=== PATIENT | male | born 1960 | race Caucasian/White ===

== ENCOUNTER 2023-07-31 09:18 | Observation (INO) | payer OTHER, SELFPAY ==
--- NOTE | ~2023-07-31 | MR_ITS ---
EXAMINATION: MR BRAIN WITHOUT CONTRAST CLINICAL INFORMATION: transient left-sided vision loss COMPARISON: CTA 07/31/2023 TECHNIQUE: MRI of the brain was obtained using routine sequences without contrast. FINDINGS: No acute infarct. No acute intracranial hemorrhage or extra-axial fluid collection. The ventricles and sulci are normal in size and configuration without significant volume loss or hydrocephalus. Minimal nonspecific periventricular T2 hyperintensity of no clinical significance. No mass lesion, mass effect, or herniation pattern. Normal intracranial arterial and dural venous sinus flow voids. Normal appearance of the midline structures. The orbits are grossly unremarkable. Retention cyst in the left maxillary sinus and mild patchy paranasal sinus mucosal thickening. Mild degenerative changes of the temporomandibular joints with trace joint effusions. MR/MR head/brain wo con IMPRESSION: Unremarkable brain MRI.
--- NOTE | ~2023-07-31 | CT_ITS ---
EXAMINATION: CT ANGIOGRAM HEAD CT ANGIOGRAM NECK CLINICAL INFORMATION: Transient vision loss of the left eye. COMPARISON: CT head from 09/10/2007. TECHNIQUE: Initial noncontrast power supply engineer imaging of the head and neck was performed. Noncontrast head CT was also performed. Test bolus sequences followed by intravenous administration 78 mL of Omnipaque 350. Helical imaging was performed in the axial plane from the aortic arch to the skull vertex. Delayed postcontrast imaging of the head was also performed. The data was processed at the ct technologist's workstation for generation of MIP sequences. Angled MIPs and volume rendered reformatted images were also generated at an offline 3D workstation. Stenoses are assessed in accordance with NASCET criteria unless otherwise indicated. This CT examination was performed using dose optimization techniques as appropriate, variously including the following: *Automated exposure control. *Adjustment of mA and/or kV according to patient size (this includes techniques or standardized protocols for targeted exams where dose is matched to indication/reason for exam; i.e. extremities or head). *Use of iterative reconstruction technique. DLP: 2344 mGy-cm FINDINGS: CT Head: There is no evidence of acute intracranial hemorrhage or edematous territorial infarction. Bustillo-white matter differentiation is preserved. A few foci of hypoattenuation in the periventricular and deep white matter are consistent with mild microangiopathy. The ventricles are normal in morphology and size. No evidence for obstructive hydrocephalus. No abnormal mass effect or midline shift. No extra-axial fluid collections. No pathologic intra-axial enhancement or regional oligemia. No acute soft tissue or osseous abnormalities. Mild mucosal thickening of the paranasal sinuses. The mastoid air cells and middle ear cavities are clear. CT Neck: The thyroid gland and remaining cervical soft tissues are within normal limits. Mild degenerative retrolisthesis of C6 on C7. Moderate degenerative arthropathy of the atlantodental articulation. Moderate degenerative disc disease from C3-C5 and at C6-C7. Facet and uncovertebral joint arthropathy leads to osseous encroachment on the neural foramina from at C3-C4 and C6-C7. CT Upper Chest: The visualized lung apices and upper mediastinum are within normal limits. Neck CTA: Aortic Arch: Normal contour and caliber with mild calcific atherosclerotic disease. Classic 3 vessel branching pattern of the aortic arch. Great Vessel Origins: No significant stenosis of the branch origins. Right Common Carotid Artery: No focal stenosis or occlusion. Cervical Right Internal Carotid Artery: Normal opacification without focal stenosis or occlusion. Left Common Carotid Artery: No focal stenosis or occlusion. Cervical Left Internal Carotid Artery: Normal opacification without focal stenosis or occlusion. Cervical Right Vertebral Artery: Dominant. No focal stenosis or occlusion. Cervical Left Vertebral Artery: No focal stenosis or occlusion. Brain CTA: Intracranial Internal Carotid Arteries: No focal stenosis or occlusion. Normal opacification of the proximal ophthalmic arteries bilaterally. Right Anterior Cerebral Artery: Normal A1 segment. Normal opacification of the distal MICHELLE segments. Left Anterior Cerebral Artery: Normal A1 segment. Normal opacification of the distal MICHELLE segments. Anterior Communicating Artery: Normal. Right Middle Cerebral Artery: Normal M1 segment of the MCA without focal stenosis or occlusion. Normal arborization of the distal segments. Left Middle Cerebral Artery: Normal M1 segment of the MCA without focal stenosis or occlusion. Normal arborization of the distal segments. Right Vertebral Artery: Normal V4 segment. Normal opacification of the proximal segments of the posterior inferior cerebellar artery. Left Vertebral Artery: The V4 segment largely terminates as the posterior inferior cerebellar artery. Basilar Artery: Normal without focal stenosis or occlusion. Normal appearance of the proximal superior cerebellar arteries. Right Posterior Cerebral Artery: Normal P1 segment. Normal opacification of the distal RPG PROGRAMMER ANALYST segments. Left Posterior Cerebral Artery: Normal P1 segment. Normal opacification of the distal RPG PROGRAMMER ANALYST segments. Normal opacification of the superior sagittal, straight, transverse, and sigmoid sinuses. CT/CT angio head neck IMPRESSION: 1. No evidence of acute intracranial hemorrhage or edematous territorial infarction. Mild underlying microangiopathy. 2. CTA of the head and neck without proximal occlusion or flow-limiting stenosis.
[2023-07-31 09:22] VITALS: BP 142/72; PULSE 88; RESP 16; TEMP 36.6; O2SAT 100; BMI 19.5
--- NOTE | 2023-07-31 09:42 | ECG_ITS ---
Test Reason : STROKE LIKE SYMPTOMS Blood Pressure : / mmHG Vent. Rate : 069 BPM Atrial Rate : 069 BPM P-R Int : 156 ms QRS Dur : 082 ms QT Int : 354 ms P-R-T Axes : 065 059 067 degrees QTc Int : 379 ms Normal sinus rhythm Normal ECG When compared with ECG of 10-SEP-2007 07:04, No significant change was found Referred By: Brenna Chavez Electronically Signed By:Timothy Gan
--- NOTE | 2023-07-31 10:11 | ED.GENADULT ---
HPI - General Adult General Chief complaint: Eye Problems Stated complaint: temp blindness sent by urgent care Time Seen by Provider: 07/31/23 09:48 Source: patient, RN notes reviewed and old records reviewed Mode of arrival: ambulatory History of Present Illness HPI narrative: 62-year-old male with no significant past medical history presenting to the ED complaining of transient left eye blindness lasting a few seconds noted Monday. Reports woke up feeling thigh been developed sudden blindness which self-resolved without other associated symptoms. Does admit to similar symptoms in May affecting both eyes which was brief, never worked-up. Denies headache, neck pain, lightheadedness/dizziness, blurry/double vision, tearing, nausea/vomiting, CP/SOB, numbness, tingling, weakness. Denies taking anticoagulation. Related Data Allergies Allergy/AdvReac Type Severity Reaction Status Date / Time No Known Allergies Allergy Verified 07/31/23 09:26 Review of Systems Review of Systems: Constitutional: No Fever, No Chills, No Fatigue, No Malaise ENT/Mouth: No Ear Pain, No Nasal Congestion, No sore throat, No Rhinorrhea, No Swallowing Difficulty Eyes: No Eye Pain, No Swelling, No Redness, No Foreign Body, No Discharge, + Vision Changes Cardiovascular: No Chest Pain, No SOB Respiratory: No Cough, No Sputum, No Dyspnea Gastrointestinal: No Nausea, No Vomiting, No Diarrhea, No Constipation, No Abdominal pain Genitourinary: No Dysuria, No Urinary Frequency, No Hematuria, No Flank Pain Musculoskeletal: No joint pain, No Myalgias, No Joint Swelling Skin: No Skin Lesions, No rash Neuro: No Weakness, No Numbness, No Paresthesias, No Loss of Consciousness, No Dizziness, No Headache Yes all other systems are reviewed and are negative Constitutional: Constitutional: Reports as per HPI Neurologic: Denies Abnormal speech present [facility] Past Medical History Attestation statement: The following information was validated with the patient. Source: old records reviewed Medical History Erectile dysfunction Social History Social History Smoked in Last 30 Days: No Use of substances other than those prescribed or required for medical reasons: No Advance Directives: No Physical Exam ED Vital Signs: Vital Signs - 24 hr 07/31/23 09:22 07/31/23 12:11 Temperature 97.9 F 98.0 F Pulse Rate 88 74 Respiratory Rate 16 14 Blood Pressure 142/72 H 124/72 Pulse Oximetry 100 100 Oxygen Delivery Method Room Air Room Air BMI result Body Mass Index 19.5 Const General: cooperative, healthy appearing and no acute distress Orientation/consciousness: patient oriented x3 Limitations: no limitations HENMT Head: Yes normal to inspection and Yes atraumatic Ears: hearing grossly normal bilaterally and external ears normal General nose exam: Normal external nose present Face and sinus: Yes normal facial exam Mouth: Normal oral and palatal mucosa present and no drooling Throat: Yes posterior oropharynx normal, Yes tonsils normal, Yes uvula midline, No uvula laterally displaced and No uvular edema Eyes General: appearance normal, both eyes and all related structures Periorbital: periorbital findings normal Eyelids: Yes eyelids normal Conjunctivae: conjunctivae normal Sclerae: sclerae normal Pupils: Equal, round and reactive pupils present EOM: EOMs intact bilaterally and no movement deficit Direct Ophthalmoscopy: normal light reflex Neck Neck: Yes normal visual inspection and Yes no meningeal signs Resp Effort & Inspection: normal respiratory effort and no respiratory distress Auscultation: clear to auscultation bilaterally Cardio Rate: regular rate Heart sounds: S1 normal heart sound present and S2 normal heart sound present GI Inspection: Yes normal to inspection Palpation (GI): Soft to palpation, nontender, no guarding and not rigid General: Yes no CVA tenderness Back/Spine/Pelvis Back: no CVA tenderness Skin Rashes: no rashes Wounds: no wounds Neuro General: patient oriented x3, gait normal, tone normal, moves all extremities, no meningeal signs, no focal motor deficits and CN's II-XI intact bilaterally Cranial nerves: Yes CN's II-XII intact bilaterally, Yes Equal, round and reactive pupils present and Yes Bilaterally intact EOM present Cognition (Neuro): normal cognition Speech: No Abnormal speech present Gait exam (Neuro): Normal gait present Motor exam (neuro): 5/5 motor strength present throughout, Pronator motor function not present and no tremor noted Extrem General: Yes normal to inspection NIH Stroke Scale Internal: Initial- Upon Arrival Level of Consciousness: Alert Level of Consciousness Questions: Answers both questions correctly Level of Consciousness Commands: Performs both tasks correctly Best Gaze: Normal Visual: No visual loss Facial Palsy: Normal Motor Arm (Right): No drift Motor Arm (Left): No drift Motor Leg (Right): No drift Motor Leg (Left): No drift Limb Ataxia: Absent Sensory: Normal Best Language: No aphasia Dysarthia: Normal Extinction and Inattention: No abnormality Score: 0 Course Course Course Narrative: -[id number]--labs reassuring CT angio head neck IMPRESSION: 1. No evidence of acute intracranial hemorrhage or edematous territorial infarction. Mild underlying microangiopathy. 2. CTA of the head and neck without proximal occlusion or flow-limiting stenosis. > plan to admit for further management Medications Administered Discontinued Medications Generic Name Dose Route Start Last Admin Trade Name Freq PRN Reason Stop Dose Admin Iohexol 100 ml 07/31/23 11:22 07/31/23 11:22 Iohexol 350 Mg/Ml 100 Ml Infus..Btl IV 07/31/23 11:23 70 ml ONCE ONE Administration Medical Decision Making Medical Decision Making [facility] Narrative: 62-year-old male with no significant past medical history presenting to the ED complaining of transient left eye blindness lasting a few seconds noted Monday morning. On exam vital signs stable, NAD, nontoxic appearing physical exam as noted above, unremarkable, no focal neuro deficits. Concern for Amaurosis fugax vs TIA/CVA vs complicated migraine vs carotid artery disease vs ocular dz Plan: EKG, labs, CTA head and neck Please refer to course for remaining clinical decision making, interpretation of labs/imaging results, and discussions with consultants and/or family members. Differential Diagnosis Differential Diagnoses: The differential diagnosis associated with the presentation includes As above Admission/Observation Consideration of admission/observation: Escalation of care including admission/observation considered Consult Healthcare Provider Management of the patient was discussed with: Hospitalist Lab Data [facility] Lab Attestation statement: I reviewed the patient's lab results. 07/31/23 10:13 07/31/23 10:13 Labs: Lab Results 07/31/23 Range/Units 10:13 WBC 4.4 L (4.8-10.8) X10*3/uL RBC 4.50 L (4.60-5.80) X10*6/uL Hgb 13.8 L (14.0-18.0) g/dl Hct 40.4 L (42.0-52.0) % MCV 89.8 (80.0-98.0) fL MCH 30.7 (27.0-33.0) pg MCHC 34.2 (31.0-36.0) g/dl RDW 13.3 (11.0-16.0) % Plt Count 239 (160-400) X10*3/uL MPV 9.7 (9.4-12.4) fL Immature Gran % (Auto) 0.2 (0.0-0.4) % Neut % (Auto) 56.1 (45-73) % Lymph % (Auto) 34.0 (20-40) % [place] % (Auto) 7.9 (2-11) % Eos % (Auto) 1.1 (0-4) % Baso % (Auto) 0.7 (0-2) % Lymph # (Auto) 1.5 (1.2-4.9) X10*3/uL [place] # (Auto) 0.4 (0.1-1.2) X10*3/uL Eos # (Auto) 0.1 (0.0-0.4) X10*3/uL Baso # (Auto) 0.0 (0.0-0.2) X10*3/uL Abs Immat Gran (auto) 0.01 (0.00-0.03) X10*3/uL Absolute Neuts (auto) 2.5 (2.0-8.3) x10*3/uL Absolute Nucleated RBC 0.000 (0.0-0.012) X10*3/uL Nucleated RBC % (auto) 0.0 (0.0-0.2) /100WBC PT 11.1 (11.1-13.3) SEC INR 0.9 (0.9-1.1) Sodium 142 (135-145) mmol/L Potassium 4.2 (3.3-5.1) mmol/L Chloride 106 (96-108) mmol/L Carbon Dioxide 32 H (22-29) mmol/L Anion Gap 8 L (12-20) BUN 18 H (9-16) mg/dL Creatinine 0.97 (0.5-1.4) mg/dL Estim Creat Clear Calc 72.9 Estimated GFR > 60 Random Glucose 99 (60-115) mg/dL Calcium 9.4 (8.4-10.2) mg/dL Magnesium 2.1 (1.6-2.6) mg/dL Total Bilirubin 0.5 (0.0-1.0) mg/dL Direct Bilirubin 0.2 (0.0-0.5) mg/dL AST 15 (5-37) U/L ALT 13 (0-40) U/L Alkaline Phosphatase 53 (39-117) U/L Troponin I High Sens < 2.7 (<3.5-35.0) ng/L Total Protein 6.9 (6.5-8.0) g/dL Albumin 4.2 (3.5-5.0) g/dL COVID-19 ([facility]) Negative (Negative) COVID-19 Clin Com See Note Independent Interpretation I performed an independent interpretation of an: EKG (My interpretation EKG normal sinus rhythm rate of 69. MS interval 156. QTC 379. No STEMI) and CT Scan Radiology Impression Discussion of test interpretation with radiology: I have reviewed the radiologist's reading. External Record Review External record reviewed: Inpatient record, Office record, Outpatient record, Prior outpatient labs, Prior outpatient radiology, Primary care record and Outside ED record Tests considered The following testing was considered but not selected: As above Critical Care Time Critical Care Time Critical Care Time: Yes Total Critical Care Time: 35 Attestation: I have personally provided critical care time exclusive of time spent on separately billable procedures. Time includes review of lab data, radiology results, discussion with consultants, and monitoring for potential decompensation. Intervention performed as documented. Discharge Plan Discharge Clinical Impression: Transient vision disturbance of left eye Patient Disposition: Admitted As Inpatient
[2023-07-31 10:19] LABS: MANUAL DIFF FLAG NO
--- NOTE | 2023-07-31 10:19 | PC.NURSE ---
pt a&o x4, pleasant, calm, and cooperative. pt sts had vision changes briefly on monday but has since resolved. 20G IV placed to LAC, labs drawn and sent. pt resting quielty on stretcher, watching tv. awaiting CTA. call tate within pt reach, plan of care ongoing.
[2023-07-31 10:23] LABS: Basophils Percent Auto 0.7 % (0-2); Eosinophils Absolute Auto 0.1 X10*3/uL (0.0-0.4); Eosinophils Percent Auto 1.1 % (0-4); Hematocrit 40.4 % (42.0-52.0); Hemoglobin 13.8 g/dl (14.0-18.0); Imm Gran Abs Auto 0.01 X10*3/uL (0.00-0.03); Imm Gran Pct Auto 0.2 % (0.0-0.4); Lymphocytes Absolute Auto 1.5 X10*3/uL (1.2-4.9); Mean Corpuscular HGB Conc 34.2 g/dl (31.0-36.0); Mean Corpuscular Hemoglobin 30.7 pg (27.0-33.0); Mean Corpuscular Volume 89.8 fL (80.0-98.0); Mean Platelet Volume 9.7 fL (9.4-12.4); Monocytes Absolute Auto 0.4 X10*3/uL (0.1-1.2); Monocytes Percent Auto 7.9 % (2-11); Neutrophils Absolute Auto 2.5 x10*3/uL (2.0-8.3); Neutrophils Percent Auto 56.1 % (45-73); Platelet Count 239 X10*3/uL (160-400); Red Cell Distribution Width 13.3 % (11.0-16.0); White Blood Count 4.4 X10*3/uL (4.8-10.8)
[2023-07-31 10:25] LABS: INTERNATIONAL NORM RATIO 0.9 (0.9-1.1); Prothrombin Time 11.1 SEC (11.1-13.3)
[2023-07-31 10:41] LABS: Alanine Aminotransferase 13 U/L (0-40); Albumin Level 4.2 g/dL (3.5-5.0); Alkaline Phosphatase 53 U/L (39-117); Anion Gap 8 (12-20); Aspartate Amino Transferase 15 U/L (5-37); Bilirubin Direct 0.2 mg/dL (0.0-0.5); Bilirubin Total 0.5 mg/dL (0.0-1.0); Blood Urea Nitrogen 18 mg/dL (9-16); Calcium 9.4 mg/dL (8.4-10.2); Carbon Dioxide 32 mmol/L (22-29); Chloride 106 mmol/L (96-108); Creatinine Clr Calc Pharmacy 72.9; Estimated Glomerular Filt Rate > 60; Glucose Random 99 mg/dL (60-115); Magnesium 2.1 mg/dL (1.6-2.6); Potassium 4.2 mmol/L (3.3-5.1); Sodium 142 mmol/L (135-145); Total Protein 6.9 g/dL (6.5-8.0)
[2023-07-31 10:47] LABS: COVID-19 Test Negative (Negative); IDNOW Serial# 9DB6401D
[2023-07-31 10:51] LABS: Troponin-I High Sensitivity < 2.7 ng/L (<3.5-35.0)
[2023-07-31] MEDS: iohexoL 350 MG/ML 100 ML INFUS..BTL IV (11:22)
[2023-07-31 12:11] VITALS: BP 124/72; PULSE 74; RESP 14; TEMP 36.7; O2SAT 100
--- NOTE | 2023-07-31 13:56 | P.HPHOSP_ITS ---
History of Present Illness Date of Service: 07/31/23 <SERJIO Ash - Last Filed: 07/31/23 14:09> Attending physician on admission: Aster Sawyer <SERJIO Ash - Last Filed: 07/31/23 14:09> Chief Complaint: unilateral vision loss <SERJIO Ash - Last Filed: 07/31/23 14:09> 62 year old male with history of erectile dysfunction on sildenafil presented to the ED earlier today for evaluation of sudden onset unilateral vision loss of the L eye that occurred Monday lasting about 10 seconds. No other deficits reported including dizziness, headache, weakness, paresthesias. Had similar symptoms in the bilateral eyes in may lasting 10-15 seconds. Was seen by his frame opener who reportedly was not concerned per patient. Has had poor PCP follow up but has a new pcp intake scheduled in October. Was seen in urgent care earlier today recommending he come in for evaluation. On arrival, VSS. Hematology studies unremarkable. Renal function and electrolytes normal. Trop undetectable. Negative for COVD-19. CTA head/neck negative for any acute intracranial abnormality. No hemodynamically significant stenosis or LVO. EKG shows NSR, rate 69, no st/twave abnormality. No illicit substance use, mj use, etoh use, or cigarette smoking <SERJIO Ash - Last Filed: 07/31/23 14:09> Review of Systems 2 Review of Systems: General: No fevers, malaise, unintentional weight loss HEENT: No blurred vision, diplopia. No sore throat, nasal congestion, rhinorrhea, sinus pain, ear pain Cardiovascular: No chest pain, palpitations, or leg edema Respiratory: No shortness of breath, wheezing, cough GI: No abdominal pain, nausea, vomiting, diarrhea, constipation, melena, hematochezia : No dysuria, hematuria, increased urinary frequency, decreased urinary output MSK: No myalgia, back pain Neuro: +unilateral vision loss. No headaches, weakness, paresthesias Skin: No rashes or lesions <SERJIO Ash Last Filed: 07/31/23 14:09> [facility] Medical History: Medical History Erectile dysfunction <SERJIO Ash - Last Filed: 07/31/23 14:09> Social History: Social History service: No <SERJIO Ash - Last Filed: 07/31/23 14:09> Meds Allergies/Adverse reactions: Allergies Allergy/AdvReac Type Severity Reaction Status Date / Time No Known Allergies Allergy Verified 07/31/23 09:26 <SERJIO Ash - Last Filed: 07/31/23 14:09> Home medications: Home Medications Medication Instructions Recorded Confirmed Last Taken Type ascorbic acid (vitamin C) 500 mg 500 mg PO DAILY 07/31/23 07/31/23 Unknown History capsule,extended release calcium carbonate 500 mg calcium 500 mg PO DAILY 07/31/23 07/31/23 Unknown History (1,250 mg) tablet magnesium 250 mg tablet 250 mg PO DAILY 07/31/23 07/31/23 Unknown History magnesium oxide 400 mg PO DAILY 07/31/23 07/31/23 Unknown History sildenafil 25 mg tablet 25 mg PO DAILY PRN Sexual Activity 07/31/23 07/31/23 Unknown History <SERJIO Ash - Last Filed: 07/31/23 14:09> Physical Exam 2 Vital Signs and Narrative: Vital Signs: Last Vital Signs Temp 98.0 F 07/31/23 12:11 Pulse 74 07/31/23 12:11 Resp 14 07/31/23 12:11 BP 124/72 07/31/23 12:11 Pulse Ox 100 07/31/23 12:11 O2 Del Method Room Air 07/31/23 12:11 BMI result Body Mass Index 19.5 <SERJIO Ash - Last Filed: 07/31/23 14:09> Results Labs CBC and Chem 7: 08/01/23 06:12 08/01/23 06:12 <SERJIO Ash - Last Filed: 07/31/23 14:09> Labs: Laboratory Results - last 24 hr 07/31/23 10:13 MCV 89.8 MCH 30.7 MCHC 34.2 RDW 13.3 Plt Count 239 MPV 9.7 Immature Gran % (Auto) 0.2 Neut % (Auto) 56.1 Lymph % (Auto) 34.0 [place] % (Auto) 7.9 Eos % (Auto) 1.1 Baso % (Auto) 0.7 Lymph # (Auto) 1.5 [place] # (Auto) 0.4 Eos # (Auto) 0.1 Baso # (Auto) 0.0 Abs Immat Gran (auto) 0.01 Absolute Neuts (auto) 2.5 Absolute Nucleated RBC 0.000 Nucleated RBC % (auto) 0.0 PT 11.1 INR 0.9 Anion Gap 8 L Estim Creat Clear Calc 72.9 Estimated GFR > 60 Random Glucose 99 Calcium 9.4 Magnesium 2.1 Total Bilirubin 0.5 Direct Bilirubin 0.2 AST 15 ALT 13 Alkaline Phosphatase 53 Total Protein 6.9 Albumin 4.2 COVID-19 ([facility]) Negative COVID-19 Clin Com See Note <SERJIO Ash - Last Filed: 07/31/23 14:09> Imaging Radiologist's Impressions: Impressions Head/Neck CTA 07/31/23 11:23 IMPRESSION: 1. No evidence of acute intracranial hemorrhage or edematous territorial infarction. Mild underlying microangiopathy. 2. CTA of the head and neck without proximal occlusion or flow-limiting stenosis. <SERJIO Ash - Last Filed: 07/31/23 14:09> Assessment and Plan (1) Transient vision disturbance of left eye: Status: Acute <SERJIO Ash - Last Filed: 07/31/23 14:09> 62 year old male with history of erectile dysfunction on sildenafil to be observed for transient vision loss of L eye #Transient vision loss of L eye -possible side effect of sildenafil, however cannot exclude TIA/amaurosis fugax -CTA head/neck negative for any acute intracranial abnormality of hemodynamically significant stenosis -MRI brain ordered -asa 81mg now and daily -lipid profile pending, atorvastatin 40mg daily -echo -neuro consult -swallow eval, neuro checks, admit to med/tele DVT prophylaxis- lovenox full code <SERJIO Ash - Last Filed: 07/31/23 14:09> 62 year old male with history of erectile dysfunction on sildenafil to be observed for transient vision loss of L eye #Transient vision loss of L eye -possible side effect of sildenafil, however cannot exclude TIA/amaurosis fugax -CTA head/neck negative for any acute intracranial abnormality of hemodynamically significant stenosis -MRI brain ordered -asa 81mg now and daily -lipid profile pending, atorvastatin 40mg daily -echo -neuro consult -swallow eval, neuro checks, admit to med/tele DVT prophylaxis- lovenox full code Addendum to history and physical by the advanced practice provider, Elías Mcqueen I interviewed and examined the patient. I discussed their presentation and management with the JOSE. I reviewed the history and physical and agree with the documentation, with the following additions and corrections: 62yo M presenting with 10 sec episode of transient L eye vision loss 2 d prior to presentation. Similar episode in May 2023. Pt saw his eye doctor, who was not concerned. Sent in by Urgent Care. CTA negative for any acute stroke or significant stenosis. Plan admit to telemetry on observation, check MRI/TTE, Neuro consult. Aspirin + statin. <Aster Sawyer MD - Last Filed: 08/01/23 12:39> Quality Stroke Does the patient have a stroke diagnosis?: Yes <SERJIO Ash - Last Filed: 07/31/23 14:09> Reason for No Anti-thrombotic by Day Two: Not indicated <SERJIO Ash - Last Filed: 07/31/23 14:09> VTE Prior VTE?: No <SERJIO Ash - Last Filed: 07/31/23 14:09> VTE Risk Level:: Medical - moderate - high <SERJIO Ash - Last Filed: 07/31/23 14:09> VTE Device Contraindication: Treatment Not Indicated <SERJIO Ash - Last Filed: 07/31/23 14:09> VTE Drug Contraindication: N/A - Med Ordered <SERJIO Ash - Last Filed: 07/31/23 14:09>
[2023-07-31 14:39] LABS: Cholesterol 221 mg/dL (<200); HDL Cholesterol 72 mg/dL (>40); LDL Cholesterol Calculated 132 mg/dL (<100); Triglycerides 89 mg/dL (<150)
--- NOTE | 2023-07-31 14:47 | PHA.MEDREC ---
Pharmacy Consult ? Medication Reconciliation Pharmacy has completed the medication reconciliation. Patient reported medications. Leticia Brody, VictorinoD
--- NOTE | 2023-07-31 16:06 | PM.NEUROCN ---
History of Present Illness Data of Consult Service Date: 07/31/23 Primary Care Provider: Rae Bennett MD [facility] Reason for consult: Visual loss 62 years old man who came to hospital stating that couple of days ago he woke up and could not see from his left eye. He was not drinking and did not take any drug of abuse. When he woke up he noticed something wrong with his left eye but he did not cover each eye individually. He said that it lasted for about 10 seconds and then everything was normal. There was no associated pain or headache. He also reported that this kind of symptom happened few months ago when both of his eyes were affected lasting for few seconds. He had seen his eye doctor and no abnormality of I was noted. He was taking sildenafil for erectile dysfunction. Review of Systems Review of Systems: No headaches PMFSH Past Medical History Medical History Erectile dysfunction Social History Social History Smoked in Last 30 Days: No Use of substances other than those prescribed or required for medical reasons: No Advance Directives: No Meds Allergies Allergy/AdvReac Type Severity Reaction Status Date / Time No Known Allergies Allergy Verified 07/31/23 09:26 Active Medications: Current Medications Acetaminophen (Acetaminophen 325 Mg Tablet) 650 mg PO Q6H PRN PRN Reason: Pain, Mild (Pain Scale 1-3) Aspirin (Aspirin Enteric Coated 81 Mg Tablet.) 81 mg PO DAILY [facility] Atorvastatin Calcium (Atorvastatin Calcium 40 Mg Tablet) 40 mg PO DAILY [facility] Heparin Sodium (Porcine) (Heparin Sodium,Porcine 5,000 Unit/Ml Vial) 5,000 unit SUBCUT Q12H [facility] Ondansetron HCl (Ondansetron Hcl 4 Mg/2 Ml Vial) 4 mg IVPUSH Q8H PRN PRN Reason: Nausea and Vomiting Senna (Sennosides 8.6 Mg Tablet) 17.2 mg PO BEDTIME PRN PRN Reason: Constipation Sodium Chloride (0.9 % Sodium Chloride Flush 3 Ml Syringe) 3 ml IVFLUSH QSHIFT [facility] Home Medications Medication Instructions Recorded Confirmed Last Taken Type ascorbic acid (vitamin C) 500 mg 500 mg PO DAILY 07/31/23 07/31/23 Unknown History capsule,extended release calcium carbonate 500 mg calcium 500 mg PO DAILY 07/31/23 07/31/23 Unknown History (1,250 mg) tablet magnesium 250 mg tablet 250 mg PO DAILY 07/31/23 07/31/23 Unknown History magnesium oxide 400 mg PO DAILY 07/31/23 07/31/23 Unknown History sildenafil 25 mg tablet 25 mg PO DAILY PRN Sexual Activity 07/31/23 07/31/23 Unknown History Physical Exam Vital Signs: Vital Signs: Last Vital Signs Temp 98.0 F 07/31/23 12:11 Pulse 74 07/31/23 12:11 Resp 14 07/31/23 12:11 BP 124/72 07/31/23 12:11 Pulse Ox 100 07/31/23 12:11 O2 Del Method Room Air 07/31/23 12:11 BMI result Body Mass Index 19.5 Neuro: Other: Alert and awake with normal spontaneity of speech fluency comprehension and anxious affect. Pupils are 4-5 mm round reactive. Extraocular muscles are intact. Visual landry are full. Face is symmetrical. There is no pronator drift. [id number] testing is normal. Reflexes are normal. Results Labs 07/31/23 10:13 07/31/23 10:13 Labs: Short CBC 07/31/23 Range/Units 10:13 WBC 4.4 L (4.8-10.8) X10*3/uL Hgb 13.8 L (14.0-18.0) g/dl Hct 40.4 L (42.0-52.0) % Plt Count 239 (160-400) X10*3/uL BMP 07/31/23 10:13 Sodium 142 Potassium 4.2 Chloride 106 Carbon Dioxide 32 H BUN 18 H Creatinine 0.97 Calcium 9.4 Liver Function 07/31/23 Range/Units 10:13 Total Bilirubin 0.5 (0.0-1.0) mg/dL Direct Bilirubin 0.2 (0.0-0.5) mg/dL AST 15 (5-37) U/L ALT 13 (0-40) U/L Alkaline Phosphatase 53 (39-117) U/L Albumin 4.2 (3.5-5.0) g/dL head CT and CTA of brain and neck were reviewed. No vascular lesion was noted. Mild cortical bilateral frontoparietal atrophy was noted. Assessment and Plan (1) Transient vision disturbance of left eye: Status: Acute 62 years old man who reported losing vision in left eye but he did not cover each eye individually without which 1 could not be sure about it. It lasted for few seconds and it might have been either eye problem or hemianopsia. He also reported that a similar episode happened few months ago lasting for few seconds and involving both eyes. His examination, other than anxiety, did not reveal any significant abnormality. According to him as I examination by his eye doctor was also okay. His CTA of brain and neck did not reveal any vascular lesion. Only finding on CT was mild cortical atrophy, which put him at risk for anxiety type of disorder. My recommendation is reassurance and education and treatment of hyperlipidemia and baby aspirin daily. Procedures Date of Service Date of Service: 07/31/23
[2023-07-31] MEDS: Aspirin Enteric Coated 81 MG TABLET.DR PO (16:13)
[2023-07-31] MEDS: Heparin Sodium,Porcine 5,000 UNIT/ML VIAL 5000 UNIT SUBCUT (16:13)
[2023-07-31 16:19] VITALS: BP 120/65; PULSE 63; RESP 16; TEMP 36.7; O2SAT 98
[2023-07-31 16:42] LABS: Estimated Average Glucose 103 mg/dL; Hemoglobin A1c % 5.2 % (<6.0)
[2023-07-31 19:20] VITALS: BP 118/61; PULSE 82; RESP 16; TEMP 36.7; O2SAT 98
--- NOTE | 2023-07-31 23:19 | PC.NURSE ---
late entry: pt resting quietly on stretcher in no apparent distress. rr even/unlabored. pt went to MRI, both MRI and CTA negative. pt being admitted for transient vision loss of left eye. rr even/unlabored. on cardiac diet. neuros grossly intact. pt ambulatory on own. call tate within reach. plan of care ongoing. inpatient report complete. awaiting pt transport.
[2023-08-01] VITALS: BP 109/56; PULSE 73; RESP 20; TEMP 36.1; O2SAT 98
[2023-08-01] MEDS: 0.9 % Sodium Chloride Flush 3 ML SYRINGE IVFLUSH ×2 (02:00→08:21)
[2023-08-01 03:54] VITALS: BP 103/60; PULSE 76; RESP 20; TEMP 36.8; O2SAT 97
[2023-08-01 06:54] LABS: MANUAL DIFF FLAG NO
--- NOTE | 2023-08-01 07:00 | CA_ITS ---
Transthoracic Echocardiogram Patient (Last, First, Middle): Hasmukh Sandoval, Gender: Male Date of : 1960 Age: 62 Procedure Date: 08/01/2023 Procedure Type: Transthoracic Echocardiogram [place] [facility] [place] Height: 182. 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 The visually estimated ejection fraction is between 55-60%. Diastolic function is normal for age - Normal right ventricular cavity size and systolic function. - The left atrium is normal in size. There is no evidence of interatrial shunt by agitated saline. - There is mild dilatation of the ascending aorta measuring 3.70 cm. Findings Left Ventricle Normal left ventricular size, thickness, systolic function, and wall motion. The visually estimated ejection fraction is between 55-60%. Diastolic function is normal for age. Right Ventricle Normal right ventricular cavity size and systolic function. Atria The left atrium is normal in size. There is no evidence of interatrial shunt by agitated saline. Aortic Valve The aortic valve was not well visualized. There is no aortic valve stenosis. There is no aortic valve regurgitation. Mitral Valve Normal mitral valve structure and function. There is no mitral valve regurgitation. There is no mitral valve stenosis. Pulmonic Valve The pulmonic valve is likely normal. Tricuspid Valve Normal tricuspid valve structure. There is no tricuspid valve regurgitation. Normal right atrial pressure. There is no evidence of pulmonary hypertension. Great Vessels There is mild dilatation of the ascending aorta measuring 3.70 cm. The visualized portions of the pulmonary artery and branches are normal. Venous The inferior vena cava is normal in size and collapses greater than 50% with inspiration. Pericardium/Pleural There is no evidence of pericardial effusion. Prior Study Comparison No prior study available for comparison. Measurements 2D Linear Measurements IVSd: 0.71 0.6-0.9/0.6-1.0 cm LVIDd: 4.40 3.9-5.3/4.2-5.9 cm LVIDd Index: 2.39 2.4-3.2/2.2-3.1 cm/m2 LVIDs: 3.00 2.0-3.6 cm LVPWd: 0.73 0.7-1.1 cm Ao Root: 3.30 2.1-3.5 cm LA Diam: 3.00 2.7-3.8/3.0-4.0 cm LAIDs Index: 1.63 1.5-2.3 cm/m2 LV Mass: 118.77 67-162/88-224 g LV Mass Index: 64.55 43-95/49-115 g/m2 LVOT Diam: 2.10 3.0+(-)1.3 cm 2D Systolic Function EF 4C: 59.10 >55% EF 2C: 65.80 >55% EF BiP: 62.90 >55% Mitral Valve MV Pk E: 0.48 MV PK A: 0.65 MV Decel Time: 160.00 E/A: 0.70 E'Lateral: 10.30 E'Medial: 8.70 E/E' Med: 5.60 E/E' Lat: 4.70 PHT: 47.00 MVA PHT: 4.68 Decel Boyd: 3.02 Aortic Valve AoV Pk Gabe: 1.10 AoV Mn Gabe: 0.76 AoV VTI: 0.25 AoV Pk Grad: 5.00 Aov Mn Grad: 3.00 KIRSTEN Cont.VTI: 2.63 LVOT LVOT Pk Gabe: 0.82 LVOT Mn Gabe: 0.58 LVOT VTI: 0.19 LVOT Pk Grad: 3.00 LVOT Mn Grad: 2.00 LVOT Diam: 2.10 LVOT Area: 3.46 Diastolic Function MV Pk E: 0.48 MV Pk A: 0.65 E/A: 0.70 E'Medial: 8.70 E/E' Med: 5.60 E' Laterial: 10.30 E/E' Lat: 4.70 Right Ventricle TAPSE (mm): 27.00 TVS' Gabe: 12.00 Tricuspid Valve TR Pk Gabe: 1.78 TR Pk Grad: 13.00 RA Press: 3.00 RVSP: 16.00 Great Vessels Aorta Ao Root-2D: 3.30 2.0-3.7 cm Ao Asc: 3.70 2.1-3.4 cm Pulmonary Valve PV Pk Gabe: 0.88 Peak PV Grad: 3.00 Updated in Other Vendor System with Status of Final Timothy Gan MD electronically signed on 08/01/2023 11:31:03 AM with status of Final
[2023-08-01 07:07] LABS: Basophils Percent Auto 0.8 % (0-2); Eosinophils Absolute Auto 0.1 X10*3/uL (0.0-0.4); Hematocrit 39.5 % (42.0-52.0); Hemoglobin 13.3 g/dl (14.0-18.0); Lymphocytes Absolute Auto 1.8 X10*3/uL (1.2-4.9); Lymphocytes Percent Auto 36.2 % (20-40); Mean Corpuscular HGB Conc 33.7 g/dl (31.0-36.0); Monocytes Absolute Auto 0.5 X10*3/uL (0.1-1.2); Monocytes Percent Auto 9.7 % (2-11); Neutrophils Absolute Auto 2.6 x10*3/uL (2.0-8.3); Neutrophils Percent Auto 51.3 % (45-73); Platelet Count 222 X10*3/uL (160-400); Red Blood Count 4.44 X10*6/uL (4.60-5.80); Red Cell Distribution Width 13.3 % (11.0-16.0)
[2023-08-01 07:19] LABS: Anion Gap 10 (12-20); Blood Urea Nitrogen 16 mg/dL (9-16); Calcium 9.1 mg/dL (8.4-10.2); Carbon Dioxide 29 mmol/L (22-29); Chloride 107 mmol/L (96-108); Creatinine Clr Calc Pharmacy 78.6; Estimated Glomerular Filt Rate > 60; Glucose Random 91 mg/dL (60-115); Potassium 4.1 mmol/L (3.3-5.1); Sodium 142 mmol/L (135-145)
[2023-08-01 07:52] VITALS: BP 110/60; PULSE 73; RESP 18; TEMP 36.6; O2SAT 98
[2023-08-01] MEDS: Atorvastatin Calcium 40 MG TABLET PO (08:21)
[2023-08-01] MEDS: Aspirin Enteric Coated 81 MG TABLET.DR PO (08:21)
[2023-08-01 08:56] VITALS: BP 110/60; PULSE 73; O2SAT 98
--- NOTE | 2023-08-01 10:19 | MHC.CM.PN ---
KRISTOFER 08/01/23, EMR REVIEWED, PT ADMITTED W/VISION LOSS AND WORK-UP FOR TIA, PT CLEARED BY OT/PT AND PLAN FOR ECCHO AND DC HOME SELF CARE. PT REPORTS HE IS FULLY INDEP, DRIVES AND CAR IN [facility], PT DENIES USE OF DME/SERVICES AND GOAL FOR IS HOME TODAY. P PT VERIFIES PT WAS ASSIGNED PCP ON FILE AND HAS A NEW PT APPT IN OCTOBER AND WILL BE SEEING DR YECENIA BASSETT, PT VERIFIES COVID VACCX2 AND NO BOOSTERS AND PT HAS BEEN EDUCATED ON AND DECLINES TO COMPLETE A HCP THIS ADMISSION. ANTIC DC LATER TODAY HOME SELF-CARE, PT WILL SELF TRANSPORT
[2023-08-01 11:35] VITALS: BP 112/59; PULSE 73; RESP 18; TEMP 36.9; O2SAT 98
--- NOTE | 2023-08-01 12:39 | P.DS_ITS ---
DS: Providers Provider Date of Service: 08/01/23 Date of admission: 07/31/23 13:51 Date of discharge: 08/01/23 Primary care physician: Rae Bennett MD Consults: 07/31/23 13:53 Consult to Neurology Routine Consulting Provider: [facility] Reason for consultation: sudeden unilateral vision loss L eye DS: Diagnosis Discharge Diagnosis (1) Transient vision disturbance of left eye: Status: Acute (2) Dyslipidemia: Status: Acute DS: Summary Hospital Course Hospital Course: From the history and physical by the admitting hospitalist, SERJIO Mcqueen, 07/31/23: 62 year old male with history of erectile dysfunction on sildenafil presented to the ED earlier today for evaluation of sudden onset unilateral vision loss of the L eye that occurred Monday morning lasting about 10 seconds. No other deficits reported including dizziness, headache, weakness, paresthesias. Had similar symptoms in the bilateral eyes in may lasting 10-15 seconds. Was seen by his veneer jointer who reportedly was not concerned per patient. Has had poor PCP follow up but has a new pcp intake scheduled in October. Was seen in urgent care earlier today recommending he come in for evaluation. On arrival, VSS. Hematology studies unremarkable. Renal function and electrolytes normal. Trop undetectable. Negative for COVD-19. CTA head/neck negative for any acute intracranial abnormality. No hemodynamically significant stenosis or LVO. EKG shows NSR, rate 69, no st/twave abnormality. No illicit substance use, mj use, etoh use, or cigarette smoking He was admitted to the telemetry unit. No recurrence of visual symptoms. LDL high at 132. He was started on baby aspirin and atorvastatin. MRI of the brain unremarkable. No events on telemetry. Echocardiogram normal. Per Neurology campaign consultant Dr Kristen Carrillo: 62 years old man who reported losing vision in left eye but he did not cover each eye individually without which 1 could not be sure about it. It lasted for few seconds and it might have been either eye problem or hemianopsia. He also reported that a similar episode happened few months ago lasting for few seconds and involving both eyes. His examination, other than anxiety, did not reveal any significant abnormality. According to him as I examination by his eye doctor was also okay. His CTA of brain and neck did not reveal any vascular lesion. Only finding on CT was mild cortical atrophy, which put him at risk for anxiety type of disorder. My recommendation is reassurance and education and t reatment of hyperlipidemia and baby aspirin daily He was discharged home on baby aspirin and atorvastatin. Time Attestation Discharge coordination time: Greater than 30 minutes Quality: Safe Use of Opioids Does Pt have an Active Cancer Diagnosis on the Problem List?: No Quality: Stroke Does the patient have a stroke diagnosis?: No Physical Exam Vital Signs: Vital Signs: Last Vital Signs Temp 98.4 F 08/01/23 11:35 Pulse 73 08/01/23 11:35 Resp 18 08/01/23 11:35 BP 112/59 L 08/01/23 11:35 Pulse Ox 98 08/01/23 11:35 O2 Del Method Room Air 08/01/23 11:35 BMI result Body Mass Index 19.5 Gen: in no acute distress HEENT: sclera anicteric, moist mucus membranes Neck: supple Lungs: clear to auscultation bilaterally Heart: regular rate and rhythm, no murmurs Abd: soft, non-tender, non-distended Ext: no edema Skin: warm/well-perfused Neuro: alert and oriented x3, no focal findings Psych: appropriate affect DS: Data Data Completed and Pending Completed studies during hospitalization [Text1]: Laboratory Results WBC 5.0 X10*3/uL (4.8-10.8) 08/01/23 06:12 RBC 4.44 X10*6/uL (4.60-5.80) L 08/01/23 06:12 Hgb 13.3 g/dl (14.0-18.0) L 08/01/23 06:12 Hct 39.5 % (42.0-52.0) L 08/01/23 06:12 MCV 89.0 fL (80.0-98.0) 08/01/23 06:12 MCH 30.0 pg (27.0-33.0) 08/01/23 06:12 MCHC 33.7 g/dl (31.0-36.0) 08/01/23 06:12 RDW 13.3 % (11.0-16.0) 08/01/23 06:12 Plt Count 222 X10*3/uL (160-400) 08/01/23 06:12 MPV 10.0 fL (9.4-12.4) 08/01/23 06:12 Immature Gran % (Auto) 0.0 % (0.0-0.4) 08/01/23 06:12 Neut % (Auto) 51.3 % (45-73) 08/01/23 06:12 Lymph % (Auto) 36.2 % (20-40) 08/01/23 06:12 [place] % (Auto) 9.7 % (2-11) 08/01/23 06:12 Eos % (Auto) 2.0 % (0-4) 08/01/23 06:12 Baso % (Auto) 0.8 % (0-2) 08/01/23 06:12 Lymph # (Auto) 1.8 X10*3/uL (1.2-4.9) 08/01/23 06:12 [place] # (Auto) 0.5 X10*3/uL (0.1-1.2) 08/01/23 06:12 Eos # (Auto) 0.1 X10*3/uL (0.0-0.4) 08/01/23 06:12 Baso # (Auto) 0.0 X10*3/uL (0.0-0.2) 08/01/23 06:12 Abs Immat Gran (auto) 0.00 X10*3/uL (0.00-0.03) 08/01/23 06:12 Absolute Neuts (auto) 2.6 x10*3/uL (2.0-8.3) 08/01/23 06:12 Absolute Nucleated RBC 0.000 X10*3/uL (0.0-0.012) 08/01/23 06:12 Nucleated RBC % (auto) 0.0 /100WBC (0.0-0.2) 08/01/23 06:12 PT 11.1 SEC (11.1-13.3) 07/31/23 10:13 INR 0.9 (0.9-1.1) 07/31/23 10:13 Sodium 142 mmol/L (135-145) 08/01/23 06:12 Potassium 4.1 mmol/L (3.3-5.1) 08/01/23 06:12 Chloride 107 mmol/L (96-108) 08/01/23 06:12 Carbon Dioxide 29 mmol/L (22-29) 08/01/23 06:12 Anion Gap 10 (12-20) L 08/01/23 06:12 BUN 16 mg/dL (9-16) 08/01/23 06:12 Creatinine 0.90 mg/dL (0.5-1.4) 08/01/23 06:12 Estim Creat Clear Calc 78.6 08/01/23 06:12 Estimated GFR > 60 08/01/23 06:12 Random Glucose 91 mg/dL (60-115) 08/01/23 06:12 Estimat Average Glucose 103 mg/dL 07/31/23 10:13 Hemoglobin A1c % 5.2 % (<6.0) 07/31/23 10:13 Calcium 9.1 mg/dL (8.4-10.2) 08/01/23 06:12 Magnesium 2.1 mg/dL (1.6-2.6) 07/31/23 10:13 Total Bilirubin 0.5 mg/dL (0.0-1.0) 07/31/23 10:13 Direct Bilirubin 0.2 mg/dL (0.0-0.5) 07/31/23 10:13 AST 15 U/L (5-37) 07/31/23 10:13 ALT 13 U/L (0-40) 07/31/23 10:13 Alkaline Phosphatase 53 U/L (39-117) 07/31/23 10:13 Troponin I High Sens < 2.7 ng/L (<3.5-35.0) 07/31/23 10:13 Total Protein 6.9 g/dL (6.5-8.0) 07/31/23 10:13 Albumin 4.2 g/dL (3.5-5.0) 07/31/23 10:13 Triglycerides 89 mg/dL (<150) 07/31/23 10:13 Cholesterol 221 mg/dL (<200) H 07/31/23 10:13 LDL Cholesterol, Calc 132 mg/dL (<100) H 07/31/23 10:13 HDL Cholesterol 72 mg/dL (>40) 07/31/23 10:13 COVID-19 (DONNA) Negative (Negative) 07/31/23 10:13 COVID-19 Clin Com See Note 07/31/23 10:13 Impressions Head/Neck CTA 07/31/23 11:23 IMPRESSION: 1. No evidence of acute intracranial hemorrhage or edematous territorial infarction. Mild underlying microangiopathy. 2. CTA of the head and neck without proximal occlusion or flow-limiting stenosis. Brain MRI 07/31/23 18:40 IMPRESSION: Unremarkable brain MRI. Discharge Plan Discharge Patient Disposition: Home, Self-Care Discharge Diagnosis: Transient left eye vision loss Referrals: Rae Alexis MD [Primary Care Provider] - 1 Week Discharge Medications: New atorvastatin 40 mg Tablet 40 mg PO DAILY Qty: 30 0RF aspirin 81 mg Tablet,Delayed Release (Dr/Ec) 81 mg PO DAILY Qty: 30 0RF Continued sildenafil 25 mg Tablet 25 mg PO DAILY PRN (Reason: Sexual Activity) Rx Instructions: administer 30 minutes to 4 hours before activity calcium carbonate 500 mg calcium (1,250 mg) Tablet 500 mg PO DAILY ascorbic acid (vitamin C) 500 mg Capsule, Extended Release 500 mg PO DAILY magnesium 250 mg Tablet 250 mg PO DAILY magnesium oxide 400 mg magnesium Tablet 400 mg PO DAILY Discharge Orders: Discharge Order (Routine); Ordered 08/01/23 Ordered By: Aster Sawyer Diet: Advance to usual diet Activity on Discharge: As tolerated Stand Alone Forms: Patient Portal Discharge page Care Plan Goals: prevention of strokes Health Concerns: Transient left eye vision loss Plan of Treatment: take aspirin 81 mg daily plus atorvastatin 40 mg daily to prevent strokes Please follow up with your primary care doctor within 1 week. Return to the hospital if you experience recurrent or worsening symptoms. Assessment: See Discharge Summary.
== END 2023-08-01 14:20 | disposition home or self-care (01) ==
LOC: HO.ED 10:08 → HO.EDOVER 14:03 → HO.IMC 19:40
PROVIDERS: Admitting Provider Physician Assistant; Emergency Provider Emergency Medicine; PCP Internal Medicine; Visit Provider Family Medicine
DX: H53.122 Transient visual loss, left eye (principal); Z79.899 Other long term (current) drug therapy; Z11.52 Encounter for screening for COVID-19
CPT/HCPCS: 36415; 70496; 70498; 70551; 80048; 80061; 80076; 83036; 83735; 84484; 85025; 85610; 87635; 93005; 93306; 97162; 97165; 99222; 99285; J1644; Q9967

== ENCOUNTER → 2023-07-31 09:42 | Outpatient (BNV) | payer OTHER, SELFPAY | PROVIDERS: Admitting Provider Physician Assistant; Emergency Provider Emergency Medicine; PCP Internal Medicine; Visit Provider Internal Medicine Cardiovascular Disease | DX: H53.122 Transient visual loss, left eye (principal) | CPT/HCPCS: 93010 ==

== ENCOUNTER 2023-07-31 13:51 | Outpatient (BNV) | payer OTHER, SELFPAY | END 2023-08-01 07:00 | PROVIDERS: Admitting Provider Physician Assistant; Emergency Provider Emergency Medicine; PCP Internal Medicine; Visit Provider Internal Medicine Cardiovascular Disease | DX: H53.9 Unspecified visual disturbance (principal) | CPT/HCPCS: 93306 ==

== ENCOUNTER → 2023-07-31 13:51 | Outpatient (BNV) | payer OTHER, SELFPAY | PROVIDERS: Admitting Provider Physician Assistant; Emergency Provider Emergency Medicine; PCP Internal Medicine; Visit Provider Psychiatry & Neurology Neurology | DX: H53.122 Transient visual loss, left eye (principal) | CPT/HCPCS: 99222 ==

== ENCOUNTER → 2023-07-31 13:51 | Outpatient (BNV) | payer OTHER, SELFPAY | PROVIDERS: Admitting Provider Physician Assistant; Emergency Provider Emergency Medicine; PCP Internal Medicine; Visit Provider Physician Assistant | DX: H53.9 Unspecified visual disturbance (principal); E78.5 Hyperlipidemia, unspecified; N52.9 Male erectile dysfunction, unspecified | CPT/HCPCS: 99222; 99238 ==